=== PATIENT | male | born 1980 | race Caucasian/White ===

== ENCOUNTER 2019-02-03 14:07 | Inpatient (IN) | payer BC ==
[~2019-02-03] VITALS: Ht 180.3 cm; Wt 74.5 kg
[2019-02-03 15:36] LABS: BASO % 0.2 % (0.0-1.0); EOS # 0.1 10*3/uL (0.0-0.4); EOS % 1.2 % (1.0-4.0); HEMATOCRIT 46.7 % (42.0-52.0); HEMOGLOBIN 16.2 g/dl (14.0-18.0); LYMPH % 23.9 % (27.0-41.0); MEAN CELL VOLUME 92.5 fl (80.0-94.0); MEAN CORPUSCULAR HGB 32.1 pg (27.0-31.0); MEAN CORPUSCULAR HGB CONC 34.7 g/dl (33.0-37.0); MEAN PLATELET VOLUME 10.4 fl (9.6-12.3); MONO # 0.5 10*3/uL (0.1-1.0); NEUT # 5.6 10*3/uL (2.3-7.9); NEUT % 68.5 % (47.0-73.0); PLATELET COUNT AUTOMATED 209 10*3/uL (130-400); RED BLOOD COUNT 5.05 10*6/uL (4.50-5.90); RED CELL DISTRI WIDTH 12.1 % (0-14.5); WHITE BLOOD COUNT 8.2 10*3/uL (4.8-10.8)
[2019-02-03 15:44] LABS: INTERNATIONAL NORM RATIO 0.9 (2.0-3.5)
[2019-02-03 15:45] LABS: ALBUMIN 3.8 gm/dl (3.1-4.5); ALKALINE PHOSPHATASE 80 U/L (45-117); BUN 10 mg/dl (7-24); CHLORIDE 104 mmol/L (98-107); CREATININE 1.14 mg/dL (0.70-1.30); POTASSIUM 4.2 mmol/L (3.5-5.1); SGOT/AST 19 IU/L (3-35); SGPT/ALT 24 U/L (12-78); SODIUM 137 mmol/L (136-145)
[2019-02-03 15:48] LABS: ETHYL ALCOHOL < 3.0 mg/dl (<3)
[2019-02-03 16:00] VITALS: BP 132/84
--- NOTE | 2019-02-03 16:17 | NUR ---
PATIENT MEETS [facility]. CINA=[id number]. PATIENT WANTS TO FOLLOW UP WITH [facility] FOR HIS AFTERCARE PLAN. NARCISA GLOVER B.A. [employer] OPERATOR
--- NOTE | 2019-02-03 18:42 | NUR ---
Obtained nicotrol for pt from pharmacy and given 6 cartridges. Instructed pt how to use, may use 1 an hour and can have up to 16 cartridges in a 24 hour period. Verbalized understanding.
[2019-02-03 18:45] LABS: BILIRUBIN NEGATIVE (NEGATIVE); BLOOD NEGATIVE (NEGATIVE); CLARITY CLEAR (CLEAR); COLOR YELLOW (YELLOW); GLUCOSE NEGATIVE (NEGATIVE); KETONE NEGATIVE (NEGATIVE); LEUKO ESTERASE NEGATIVE (NEGATIVE); NITRITE NEGATIVE (NEGATIVE); PH 6.5 (5.0-9.0); UROBILINOGEN 0.2 E.U./dl (0.2-1.0)
[2019-02-03 18:53] LABS: URINE AMPHETAMINES < 1000 (1000ng/ml); URINE BARBITURATES < 200 (200ng/ml); URINE BENZODIAZEPINES < 200 (200ng/ml); URINE CANNABINOIDS (THC) < 50 (50ng/ml); URINE COCAINE > 300 (300ng/ml); URINE METHADONE < 300 (300ng/ml); URINE OPIATES > 300 (300ng/ml)
[2019-02-03 18:54] LABS: MUCOUS 2+; URINE PHENCYCLIDINE < 25 (25ng/ml); WBC 0-2 wbc/hpf (0-5)
--- NOTE | 2019-02-03 19:35 | NUR ---
24 HOUR CHART CHECK COMPLETE
[2019-02-03 20:00] VITALS: BP 111/68
--- NOTE | 2019-02-03 20:00 | NUR ---
PATIENT ASSESSMENT COMPLETED AT THIS TIME WITHOUT INCIDENT. PATIENT RESTING IN BED IN A POSITION OF COMFORT, DENIES ANY PAIN OR NEEDS AT THIS TIME. CALL LIGHT WITHIN REACH, WILL CONTINUE TO MONITOR.
--- NOTE | 2019-02-03 23:10 | NUR ---
PATIENT RESTING IN BED IN A POSITION OF COMFORT, RESPIRATIONS EASY, AND NON-LABORED AT THIS TIME. PATIENT GIVEN SCHEDULED MEDICATIONS AT THIS TIME. CALL LIGHT WITHIN REACH, WILL CONTINUE TO MONITOR.
[2019-02-04] VITALS: BP 100/52; BP 104/49
--- NOTE | 2019-02-04 08:00 | NUR ---
IN TO ASSESS PATIENT, NO COMPLAINTS AT THIS TIME. CALL LIGHT WITHIN REACH, WILL MONITOR
[2019-02-04 09:07] VITALS: BP 100/60
--- NOTE | 2019-02-04 11:28 | NUR ---
PATIENT CONTINUES TO HAVE NO COMPLAINTS
[2019-02-04 12:00] VITALS: BP 94/58
--- NOTE | 2019-02-04 12:53 | NUR ---
DR. DODGE NOTIFIED AT THIS TIME THAT PATIENT IS DUE ATIVAN BECAUSE HE IS ON THE ATIVAN TAPER. NOTIFIED HIM THAT PATIENTS BLOOD PRESSURE IS RUNNING 90/50'S AND 100/60'S AND HE IS SLEEPING SOUNDLY AND SNORING LOUDLY. DR. DODGE STATED TO WAIT TO SEE IF HE WAKES UP SOON, IF NOT IT'S OK TO SKIP AND JUST GIVE THE NEXT DOSE
--- NOTE | 2019-02-04 14:45 | NUR ---
PATIENT COMPLAINING OF FEELING ITCHY. SPOKE WITH DR. DODGE, ASKED IF IT WAS OK TO SWITCH IV BENADRYL TO PO SINCE PATIENT DOES NOT HAVE AN IV. HE STATED THATS FINE
[2019-02-04 16:00] VITALS: BP 121/72
--- NOTE | 2019-02-04 18:20 | NUR ---
PATIENT PREFERRED TO USE NICOTROL INHALER AT THIS TIME. NICOTINE PATCH REMOVED
--- NOTE | 2019-02-04 19:30 | NUR ---
24 HOUR CHART CHECK COMPLETE
[2019-02-04 20:00] VITALS: BP 111/68
--- NOTE | 2019-02-04 20:17 | NUR ---
PATIENT REQUESTED BENADRYL FOR ITCHING AND ZOFRAN FOR NAUSEA AT THIS TIME. PATIENT ASSESSMENT COMPLETED AT THIS TIME WITHOUT INCIDENT, EATING POTATO CHIPS AND SNACK. CALL LIGHT WITHIN REACH, WILL CONTINUE TO MONITOR.
--- NOTE | 2019-02-04 21:30 | NUR ---
PATIENT STATED THE HIS ITCHING AND NAUSEA WERE BETTER AFTER BEING MEDICATED.
--- NOTE | 2019-02-04 22:26 | NUR ---
PRN REQUIP AND TRAZADONE GIVEN AT THIS TIME AT PATIENT REQUEST FOR RESTLESS LEG AND SLEEP. CALL LIGHT WITHIN REACH WILL CONTINUE TO MONITOR.
[2019-02-05] VITALS: BP 105/65
--- NOTE | 2019-02-05 09:00 | NUR ---
PATIENT HAS NO COMPLAINTS. WILL MONITOR
--- NOTE | 2019-02-05 12:00 | NUR ---
NO COMPLAINTS AT THIS TIME. BREATHING IS EASY AND REGULAR. DENIES WITHDRAWALS SYMPTOMS. CALL LIGHT WITHIN REACH, WILL MONITOR
[2019-02-05 16:00] VITALS: BP 129/79
[2019-02-05 20:00] VITALS: BP 126/69
--- NOTE | 2019-02-05 20:17 | NUR ---
NICOTINE GUM PRN GIVEN PER PT REQUEST
--- NOTE | 2019-02-05 20:23 | NUR ---
TRAZADONE, REQUIP AND BENADRYL GIVEN PER PT REQUEST
[2019-02-06] VITALS: BP 109/75
--- NOTE | 2019-02-06 02:56 | NUR ---
24 HOUR CHART CHECK COMPLETED
--- NOTE | 2019-02-06 07:10 | NUR ---
ARRIVED ON SHIFT, INTRODUCED TO PATIENT, WHITE BOARD UPDATED, NO NEEDS VOICED AT THIS TIME.REPORT RECEIVED FROM OFF GOING NURSE.
[2019-02-06 08:00] VITALS: BP 114/79
--- NOTE | 2019-02-06 08:00 | NUR ---
Shift chart check completed.
[2019-02-06] MEDS ORDERED: ZOFRAN 4 MG ED2 TAB PO (09:12)
[2019-02-06] MEDS ORDERED: ATARAX,VISTARIL50 MG PO (09:12)
--- NOTE | 2019-02-06 10:48 | NUR ---
Discharge instructions reviewed with patient. Patient receptive and verbalizes understanding. Follow-up care arranged. Written instructions given to patient, GAVE TO WRITTEN PERSCRIPTIONS, DECLINED W/C FOR DISCHARGE, PATIENT DOES NOT HAVE IV OT TELEMETRY. BILL HA
== END 2019-02-06 10:48 | disposition home or self-care (01) | DRG 897 ==
LOC: 5E 14:07
PROVIDERS: Internal Medicine; ADMIT Internal Medicine
DX: F11.23 Opioid dependence with withdrawal (principal); R73.9 Hyperglycemia, unspecified; F14.23 Cocaine dependence with withdrawal; R06.02 Shortness of breath; F17.210 Nicotine dependence, cigarettes, uncomplicated; Z71.6 Tobacco abuse counseling; Z82.5 Family history of asthma and other chronic lower respiratory diseases

== ENCOUNTER 2019-03-30 11:04 | Inpatient (IN) | payer BC ==
[~2019-03-30] VITALS: Ht 180.3 cm; Wt 68.6 kg
[~2019-03-30 11:04] MED LIST: ATARAX,VISTARIL50 MG PO; ZOFRAN 4 MG ED2 TAB PO
[2019-03-30 12:00] VITALS: BP 134/81
[2019-03-30] MEDS ORDERED: MELATONIN10 M2 PO (13:04)
[2019-03-30 13:42] LABS: BASO % 0.5 % (0.0-1.0); EOS # 0.1 10*3/uL (0.0-0.4); EOS % 1.5 % (1.0-4.0); HEMATOCRIT 46.4 % (42.0-52.0); HEMOGLOBIN 16.4 g/dl (14.0-18.0); LYMPH # 1.7 10*3/uL (1.3-4.4); LYMPH % 19.8 % (27.0-41.0); MEAN CELL VOLUME 90.6 fl (80.0-94.0); MEAN CORPUSCULAR HGB CONC 35.3 g/dl (33.0-37.0); MEAN PLATELET VOLUME 10.5 fl (9.6-12.3); MONO # 0.4 10*3/uL (0.1-1.0); MONO % 4.4 % (3.0-9.0); NEUT # 6.2 10*3/uL (2.3-7.9); NEUT % 73.7 % (47.0-73.0); PLATELET COUNT AUTOMATED 228 10*3/uL (130-400); RED BLOOD COUNT 5.12 10*6/uL (4.50-5.90); RED CELL DISTRI WIDTH 11.9 % (0-14.5); WHITE BLOOD COUNT 8.4 10*3/uL (4.8-10.8)
[2019-03-30 13:51] LABS: INTERNATIONAL NORM RATIO 0.9 (2.0-3.5)
[2019-03-30 13:58] LABS: ALBUMIN 4.2 gm/dl (3.1-4.5); ALKALINE PHOSPHATASE 83 U/L (45-117); BUN 12 mg/dl (7-24); CHLORIDE 107 mmol/L (98-107); CREATININE 0.98 mg/dL (0.70-1.30); POTASSIUM 4.5 mmol/L (3.5-5.1); SGOT/AST 15 IU/L (3-35); SGPT/ALT 21 U/L (12-78); SODIUM 140 mmol/L (136-145); TOTAL PROTEIN 7.9 gm/dL (6.4-8.2)
[2019-03-30 13:59] LABS: ETHYL ALCOHOL < 3.0 mg/dl (<3)
[2019-03-30 14:08] LABS: URINE AMPHETAMINES < 1000 (1000ng/ml); URINE BARBITURATES < 200 (200ng/ml); URINE BENZODIAZEPINES < 200 (200ng/ml); URINE CANNABINOIDS (THC) < 50 (50ng/ml); URINE COCAINE > 300 (300ng/ml); URINE METHADONE < 300 (300ng/ml); URINE OPIATES > 300 (300ng/ml)
[2019-03-30 14:09] LABS: URINE PHENCYCLIDINE < 25 (25ng/ml)
[2019-03-30 14:20] LABS: BILIRUBIN NEGATIVE (NEGATIVE); BLOOD NEGATIVE (NEGATIVE); CLARITY CLEAR (CLEAR); COLOR YELLOW (YELLOW); GLUCOSE NEGATIVE (NEGATIVE); KETONE NEGATIVE (NEGATIVE)
[2019-03-30 14:21] LABS: BACTERIA 1+; LEUKO ESTERASE NEGATIVE (NEGATIVE); NITRITE NEGATIVE (NEGATIVE); RBC 0-2 rbc/hpf (0-2); UROBILINOGEN 0.2 E.U./dl (0.2-1.0)
[2019-03-30 16:00] VITALS: BP 127/66
[2019-03-30 20:00] VITALS: BP 136/72
[2019-03-31] VITALS: BP 128/76
[2019-03-31 12:00] VITALS: BP 94/60
[2019-03-31 16:00] VITALS: BP 155/56
[2019-03-31 20:00] VITALS: BP 111/60
[2019-04-01] VITALS: BP 107/63
[2019-04-01 08:00] VITALS: BP 110/65
[2019-04-01 16:00] VITALS: BP 118/70
[2019-04-01 20:00] VITALS: BP 111/63
[2019-04-02] VITALS: BP 101/57
[2019-04-02 08:00] VITALS: BP 94/66
[2019-04-02] MEDS ORDERED: NICORETTE GUM4 MG PO (09:38)
[2019-04-02] MEDS ORDERED: VISTARIL25 MG PO (11:18)
== END 2019-04-02 11:46 | disposition home or self-care (01) | DRG 897 ==
LOC: 4E 11:04
PROVIDERS: Internal Medicine; ADMIT Family Medicine
DX: F11.23 Opioid dependence with withdrawal (principal); R73.9 Hyperglycemia, unspecified; F14.10 Cocaine abuse, uncomplicated; F17.210 Nicotine dependence, cigarettes, uncomplicated; B19.20 Unspecified viral hepatitis C without hepatic coma; F10.239 Alcohol dependence with withdrawal, unspecified; Z83.6 Family history of other diseases of the respiratory system; Z71.6 Tobacco abuse counseling; Z79.899 Other long term (current) drug therapy

== ENCOUNTER 2020-02-14 15:03 | Emergency (ER) | payer SELFPAY ==
[~2020-02-14] VITALS: Ht 180.3 cm; Wt 68.0 kg
[~2020-02-14 15:03] MED LIST changes: +MELATONIN10 M2 PO; +NICORETTE GUM4 MG PO; +VISTARIL25 MG PO
[2020-02-14 15:40] LABS: BASO % 0.4 % (0.0-1.0); EOS # 0.2 10*3/uL (0.0-0.4); EOS % 3.4 % (1.0-4.0); HEMATOCRIT 40.1 % (42.0-52.0); LYMPH # 1.1 10*3/uL (1.3-4.4); LYMPH % 22.2 % (27.0-41.0); MEAN CELL VOLUME 91.1 fl (80.0-94.0); MEAN CORPUSCULAR HGB 30.2 pg (27.0-31.0); MEAN CORPUSCULAR HGB CONC 33.2 g/dl (33.0-37.0); MEAN PLATELET VOLUME 9.6 fl (9.6-12.3); MONO # 0.5 10*3/uL (0.1-1.0); MONO % 11.3 % (3.0-9.0); NEUT % 62.5 % (47.0-73.0); PLATELET COUNT AUTOMATED 143 10*3/uL (130-400); RED CELL DISTRI WIDTH 12.2 % (0-14.5); WHITE BLOOD COUNT 4.8 10*3/uL (4.8-10.8)
[2020-02-14 16:00] LABS: ALBUMIN 3.4 gm/dl (3.1-4.5); ALKALINE PHOSPHATASE 78 U/L (45-117); BUN 11 mg/dl (7-24); CHLORIDE 104 mmol/L (98-107); CREATININE 0.85 mg/dL (0.70-1.30); POTASSIUM 4.1 mmol/L (3.5-5.1); SGOT/AST 15 IU/L (3-35); SGPT/ALT 16 U/L (12-78); SODIUM 135 mmol/L (136-145); TOTAL PROTEIN 7.4 gm/dL (6.4-8.2)
[2020-02-14 16:03] LABS: ACETAMINOPHEN (TYLENOL) < 5.0 ug/ml (10-30); ETHYL ALCOHOL < 3.0 mg/dl (<3)
[2020-02-14 18:07] LABS: BILIRUBIN Negative (Negative); BLOOD Negative (Negative); CLARITY Clear (Clear); COLOR Yellow (Yellow); GLUCOSE Negative (Negative); KETONE Negative (Negative); LEUKO ESTERASE Negative (Negative); NITRITE Negative (Negative); SPECIFIC GRAVITY 1.025 (1.001-1.030)
[2020-02-14 18:22] LABS: EPITHELIAL CELLS 0-2; WBC 0-2 wbc/hpf (0-5)
[2020-02-14 19:43] LABS: URINE AMPHETAMINES < 1000 (1000ng/ml); URINE BARBITURATES < 200 (200ng/ml); URINE BENZODIAZEPINES < 200 (200ng/ml); URINE CANNABINOIDS (THC) < 50 (50ng/ml); URINE COCAINE < 300 (300ng/ml); URINE METHADONE < 300 (300ng/ml); URINE OPIATES < 300 (300ng/ml)
[2020-02-14 19:54] LABS: URINE PHENCYCLIDINE < 25 (25ng/ml)
== END 2020-02-15 10:59 | disposition home or self-care (01) ==
LOC: ED 15:03
PROVIDERS: Nurse Practitioner Family
DX: F11.23 Opioid dependence with withdrawal (principal); Z79.899 Other long term (current) drug therapy; Z20.828 Contact with and (suspected) exposure to other viral communicable diseases

== ENCOUNTER 2020-09-27 15:28 | Inpatient (IN) | payer MEDICAID ==
[2020-09-27 15:56] LABS: BASO % 0.3 % (0.0-1.0); EOS # 0.2 10*3/uL (0.0-0.4); EOS % 3.5 % (1.0-4.0); HEMATOCRIT 40.4 % (42.0-52.0); LYMPH # 1.2 10*3/uL (1.3-4.4); LYMPH % 19.3 % (27.0-41.0); MEAN CORPUSCULAR HGB 30.3 pg (27.0-31.0); MEAN CORPUSCULAR HGB CONC 33.7 g/dl (33.0-37.0); MEAN PLATELET VOLUME 9.4 fl (9.6-12.3); MONO # 0.5 10*3/uL (0.1-1.0); NEUT # 4.4 10*3/uL (2.3-7.9); NEUT % 68.6 % (47.0-73.0); PLATELET COUNT AUTOMATED 178 10*3/uL (130-400); RED BLOOD COUNT 4.49 10*6/uL (4.50-5.90); RED CELL DISTRI WIDTH 12.2 % (0-14.5); WHITE BLOOD COUNT 6.4 10*3/uL (4.8-10.8)
[2020-09-27 16:00] VITALS: BP 136/90
[2020-09-27 16:10] LABS: ALBUMIN 3.8 gm/dl (3.1-4.5); ALKALINE PHOSPHATASE 85 U/L (45-117); BUN 13 mg/dl (7-24); CHLORIDE 101 mmol/L (98-107); CREATININE 0.82 mg/dL (0.70-1.30); POTASSIUM 4.4 mmol/L (3.5-5.1); SGOT/AST 17 IU/L (3-35); SGPT/ALT 17 U/L (12-78); SODIUM 134 mmol/L (136-145)
[2020-09-27 16:11] LABS: ETHYL ALCOHOL < 3.0 mg/dl (<3)
[2020-09-27 19:33] LABS: BILIRUBIN Negative (Negative); BLOOD Negative (Negative); CLARITY Clear (Clear); COLOR Yellow (Yellow); GLUCOSE Negative (Negative); KETONE Negative (Negative); LEUKO ESTERASE Negative (Negative); NITRITE Negative (Negative); PH 7.5 (4.5-8.0); SPECIFIC GRAVITY <= 1.005 (1.001-1.030); UROBILINOGEN 0.2 E.U./dl (0.0-1.0)
[2020-09-27 19:42] LABS: BACTERIA TRACE; EPITHELIAL CELLS 0-2; RBC 0-2 rbc/hpf (0-2); URINE AMPHETAMINES < 1000 (1000ng/ml); URINE BARBITURATES < 200 (200ng/ml); URINE BENZODIAZEPINES < 200 (200ng/ml); URINE CANNABINOIDS (THC) < 50 (50ng/ml); URINE COCAINE < 300 (300ng/ml); URINE METHADONE < 300 (300ng/ml); URINE OPIATES < 300 (300ng/ml); WBC 0-2 wbc/hpf (0-5)
[2020-09-27 19:43] LABS: URINE PHENCYCLIDINE < 25 (25ng/ml)
[2020-09-27 20:00] VITALS: BP 108/57
[2020-09-28] VITALS: BP 133/84
[2020-09-28 08:00] VITALS: BP 121/62
[2020-09-28 12:00] VITALS: BP 128/83
[2020-09-28 16:00] VITALS: BP 126/85
[2020-09-28 20:00] VITALS: BP 117/75
[2020-09-29] VITALS: BP 120/72
[2020-09-29 06:35] LABS: BASO % 0.5 % (0.0-1.0); EOS # 0.2 10*3/uL (0.0-0.4); EOS % 2.3 % (1.0-4.0); HEMATOCRIT 43.7 % (42.0-52.0); LYMPH # 2.2 10*3/uL (1.3-4.4); LYMPH % 27.7 % (27.0-41.0); MEAN CELL VOLUME 87.8 fl (80.0-94.0); MEAN CORPUSCULAR HGB 29.7 pg (27.0-31.0); MEAN CORPUSCULAR HGB CONC 33.9 g/dl (33.0-37.0); MONO # 0.5 10*3/uL (0.1-1.0); MONO % 6.6 % (3.0-9.0); NEUT % 62.6 % (47.0-73.0); PLATELET COUNT AUTOMATED 227 10*3/uL (130-400); RED BLOOD COUNT 4.98 10*6/uL (4.50-5.90); RED CELL DISTRI WIDTH 11.9 % (0-14.5)
[2020-09-29 06:51] LABS: BUN 16 mg/dl (7-24); CHLORIDE 107 mmol/L (98-107); CREATININE 0.91 mg/dL (0.70-1.30); SODIUM 139 mmol/L (136-145)
[2020-09-29 08:00] VITALS: BP 124/76
[2020-09-29] MEDS ORDERED: ATARAX,VISTARIL50 MG PO (12:51)
[2020-09-29] MEDS ORDERED: ROPINIROLE HYD0.5 MG PO (12:51)
[2020-09-29] MEDS ORDERED: ZOFRAN 4 MG ED2 TAB PO (12:51)
[2020-09-29 16:00] VITALS: BP 134/84
[2020-09-29 20:00] VITALS: BP 142/80
[2020-09-30] VITALS: BP 129/82
[2020-09-30 08:00] VITALS: BP 112/74
== END 2020-09-30 11:13 | disposition home or self-care (01) | DRG 773 ==
LOC: 5E 15:28
PROVIDERS: Student in an Organized Health Care Education/Training Program; ADMIT Emergency Medicine; ATTEND Emergency Medicine
DX: F11.23 Opioid dependence with withdrawal (principal); F14.10 Cocaine abuse, uncomplicated; B19.20 Unspecified viral hepatitis C without hepatic coma; F10.10 Alcohol abuse, uncomplicated; E87.1 Hypo-osmolality and hyponatremia; E44.1 Mild protein-calorie malnutrition; D64.9 Anemia, unspecified; F17.210 Nicotine dependence, cigarettes, uncomplicated; Z71.6 Tobacco abuse counseling; F41.9 Anxiety disorder, unspecified; Z79.899 Other long term (current) drug therapy; Z82.5 Family history of asthma and other chronic lower respiratory diseases